=== PATIENT | female | born 1995 ===

== ENCOUNTER 2022-02-14 12:55 | Emergency (ER) | payer MEDICAID ==
[~2022-02-14] VITALS: Ht 162.6 cm; Wt 55.0 kg
[2022-02-14] MEDS ORDERED: IBUP-2030 PO (15:54)
[2022-02-14] MEDS ORDERED: AMOX1TAB16 MT (15:54)
[2022-02-14] MEDS ORDERED: T3 PO (15:54)
[2022-02-14] MEDS: KETOROLAC 60MG/2ML VIAL IM STA (15:58)
[2022-02-14] MEDS: ACETAMINOPHEN WITH CODEINE 300/30MG TABLET PO STA (15:58)
[2022-02-14 15:59] VITALS: BP 116/55
== END 2022-02-14 16:00 | disposition home or self-care (01) ==
LOC: ER 12:55
DX: K04.7 Periapical abscess without sinus (principal)
CPT/HCPCS: 81025; 96372; 99283; J1885